=== PATIENT | female | born 1990 | race Caucasian/White ===

== ENCOUNTER 2019-06-22 21:26 | Emergency (ER) | payer OTHER ==
[2019-06-22] MEDS: HYDROCODONE/APAP (5/325) TAB PO (22:38)
== END 2019-06-23 00:23 | disposition home or self-care (01) ==
LOC: FTE 06-23 00:23
DX: S09.93XA Unspecified injury of face, initial encounter (principal); Y04.2XXA Assault by strike against or bumped into by another person, initial encounter; Y92.9 Unspecified place or not applicable; Z87.891 Personal history of nicotine dependence
CPT/HCPCS: 70486; 81025; 99284-25